=== PATIENT | female | born 1980 | race Caucasian/White ===

== ENCOUNTER 2018-07-13 16:48 | Emergency (ER) | payer MEDICAID ==
[~2018-07-13] VITALS: Ht 172.7 cm; Wt 74.0 kg
[~2018-07-13 16:48] MED LIST: HYDR-3241 PO; LORA-445 PO
[2018-07-13 18:29] LABS: BASOPHILS # (AUTO) 0.05 x10^3/uL (0-0.1); BASOPHILS % (AUTO) 1 % (0-1); EOSINOPHILS # (AUTO) 0.16 x10^3/uL (0-0.4); EOSINOPHILS % (AUTO) 3 % (1-7); LYMPHOCYTES # (AUTO) 2.32 x10^3/uL (1-3.4); LYMPHOCYTES % (AUTO) 48 % (22-44); MD NO; MEAN CORPUSCULAR HEMOGLOBIN 30.7 pg (27.0-34.8); MEAN CORPUSCULAR HGB CONC 32.7 g/dL (32.4-35.8); MEAN CORPUSCULAR VOLUME 93.8 fL (80-100); MONOCYTES # (AUTO) 0.41 x10^3/uL (0.2-0.8); MONOCYTES % (AUTO) 9 % (2-9); NEUTROPHILS % (AUTO) 39 % (42-75); PLATELET COUNT 259 x10^3/uL (130-400); RED BLOOD COUNT 3.13 x10^6/uL (3.82-5.3); RED CELL DISTRIBUTION WIDTH 16.4 % (9.6-15.2)
[2018-07-13 18:42] LABS: ALANINE AMINOTRANSFERASE 33 U/L (12-78); ALBUMIN 2.8 g/dL (3.4-5.0); ANION GAP 8 mmol/L (5-15); CALCIUM 8.2 mg/dL (8.5-10.1); CHLORIDE 112 mmol/L (98-107); CREATININE 0.59 mg/dL (0.55-1.02)
[2018-07-13 18:46] LABS: ALKALINE PHOSPHATASE 102 U/L (45-117); BILIRUBIN,TOTAL 0.6 mg/dL (0.2-1.0); TOTAL PROTEIN 8.1 g/dL (6.4-8.2); TROPONIN I < 0.015 ng/mL (0.000-0.045)
[2018-07-13] MEDS ORDERED: SODIUM CHLORIDE FLUSH 10ML SYR IVF ONE (19:00)
[2018-07-13] MEDS ORDERED: FUROSEMIDE 20 MG/2 ML IV ONE (19:00)
[2018-07-13] MEDS ORDERED: OMNIPAQUE 350 MG/ML, 100ML BOTTLE ONE (20:09)
[2018-07-13] MEDS ORDERED: FUROSEMIDE 20 MG/2 ML ONE (20:19)
[2018-07-13 21:47] VITALS: BP 128/84
== END 2018-07-13 21:49 | disposition home or self-care (01) ==
LOC: ED 20:28
DX: R18.8 Other ascites (principal); J90 Pleural effusion, not elsewhere classified
CPT/HCPCS: 36415; 71045; 71275; 80053; 83880; 84484; 84703; 85025; 93005; 93970; 96374; 99284; J1940; Q9967

== ENCOUNTER 2018-07-14 12:48 | Observation (INO) | payer OTHER ==
[~2018-07-14] VITALS: Ht 172.7 cm; Wt 74.6 kg
[2018-07-14 14:06] LABS: BASOPHILS # (AUTO) 0.04 x10^3/uL (0-0.1); BASOPHILS % (AUTO) 1 % (0-1); EOSINOPHILS # (AUTO) 0.11 x10^3/uL (0-0.4); EOSINOPHILS % (AUTO) 2 % (1-7); LYMPHOCYTES # (AUTO) 1.61 x10^3/uL (1-3.4); LYMPHOCYTES % (AUTO) 34 % (22-44); MD NO; MEAN CORPUSCULAR HEMOGLOBIN 30.5 pg (27.0-34.8); MEAN CORPUSCULAR HGB CONC 32.8 g/dL (32.4-35.8); MEAN CORPUSCULAR VOLUME 92.9 fL (80-100); MEAN PLATELET VOLUME 8.7 fL (7.4-10.4); MONOCYTES # (AUTO) 0.45 x10^3/uL (0.2-0.8); MONOCYTES % (AUTO) 9 % (2-9); NEUTROPHILS # (AUTO) 2.52 x10^3/uL (1.8-6.8); NEUTROPHILS % (AUTO) 53 % (42-75); PLATELET COUNT 250 x10^3/uL (130-400); RED CELL DISTRIBUTION WIDTH 17.1 % (9.6-15.2)
[2018-07-14 14:18] LABS: ALBUMIN 2.9 g/dL (3.4-5.0); ANION GAP 11 mmol/L (5-15); CALCIUM 8.3 mg/dL (8.5-10.1); CHLORIDE 106 mmol/L (98-107)
[2018-07-14 14:24] LABS: ALANINE AMINOTRANSFERASE 34 U/L (12-78); ALKALINE PHOSPHATASE 109 U/L (45-117); BILIRUBIN,TOTAL 0.9 mg/dL (0.2-1.0); CREATININE 0.73 mg/dL (0.55-1.02)
[2018-07-14] MEDS ORDERED: FUROSEMIDE 20 MG/2 ML IV ONE (16:30)
[2018-07-14] MEDS ORDERED: FUROSEMIDE 20 MG/2 ML ONE (16:53)
[2018-07-14] MEDS ORDERED: ENOXAPARIN 40 MG/0.4 ML SQ SCH (17:00)
[2018-07-14] MEDS ORDERED: ONDANSETRON 2MG/ML, 2ML IVPush PRN (17:00)
[2018-07-14 17:10] LABS: INTERNATIONAL NORMALIZED RATIO 1.25 (0.93-1.1); PROTHROMBIN TIME 13.1 Seconds (9.6-11.5)
[2018-07-14 18:14] VITALS: BP 127/75
[2018-07-14 18:16] LABS: MICROSCOPIC AUTO
[2018-07-14 18:17] LABS: CULTURE INDICATED? YES
[2018-07-14 21:46] VITALS: BP 100/61
[2018-07-14] MEDS ORDERED: IBUPROFEN 200 MG TABLET PO PRN (23:00)
[2018-07-14] MEDS ORDERED: IBUPROFEN 200 MG TABLET ONE (23:07)
[2018-07-15 01:10] VITALS: BP 118/74
[2018-07-15 05:47] LABS: CHLORIDE 108 mmol/L (98-107)
[2018-07-15 05:53] LABS: ALANINE AMINOTRANSFERASE 20 U/L (12-78); ALBUMIN 2.1 g/dL (3.4-5.0); ALKALINE PHOSPHATASE 80 U/L (45-117); ANION GAP 8 mmol/L (5-15); BILIRUBIN,TOTAL 0.9 mg/dL (0.2-1.0); CALCIUM 7.7 mg/dL (8.5-10.1); CREATININE 0.57 mg/dL (0.55-1.02)
[2018-07-15 07:07] VITALS: BP 117/64
[2018-07-15] MEDS ORDERED: POTASSIUM CHLORIDE 10 MEQ TABLET.ER PO SCH (08:00)
[2018-07-15] MEDS ORDERED: SPIRONOLACTONE 50 MG TABLET PO SCH (09:00)
[2018-07-15] MEDS ORDERED: FUROSEMIDE 40 MG TABLET PO SCH (09:00)
[2018-07-15] MEDS ORDERED: SPIR50TA PO (11:28)
== END 2018-07-15 14:07 | disposition home or self-care (01) ==
LOC: ED 15:49 → SUATTDRO 16:23 → EDIP 16:41 → 5SO 17:29 → DCLOUNGE 07-15 12:10
PROVIDERS: ADMIT Internal Medicine; ATTEND Internal Medicine
DX: K70.9 Alcoholic liver disease, unspecified (principal); J90 Pleural effusion, not elsewhere classified; E88.09 Other disorders of plasma-protein metabolism, not elsewhere classified; R18.8 Other ascites; E43 Unspecified severe protein-calorie malnutrition; K76.0 Fatty (change of) liver, not elsewhere classified; Z80.0 Family history of malignant neoplasm of digestive organs
CPT/HCPCS: 36415; 71046; 76700; 80053; 80074; 81001; 83880; 84443; 84703; 85025; 85610; 87086; 93005; 93306; 96372; 96374; 99284; G0378; J1650; J1940

== ENCOUNTER 2020-09-17 14:46 | Emergency (ER) | payer OTHER ==
[~2020-09-17] VITALS: Ht 170.2 cm; Wt 75.0 kg
[~2020-09-17 14:46] MED LIST changes: +SPIR50TA PO
--- NOTE | 2020-09-17 15:06 | NUR ---
PT HAS CO LEG PAIN AND LEG SWELLING. PT STATES DIAGNOSED W UMBILICAL HERNIA, PCP THINKS IT MAYBE STRANGULATED DUE TO NEW SYMPTOMS.
[2020-09-17] MEDS ORDERED: HYDROmorphone 2 MG/ML, 1ML IVPush PRN (15:30)
[2020-09-17] MEDS ORDERED: ONDANSETRON 2MG/ML, 2ML IVPush ONE (15:30)
--- NOTE | 2020-09-17 16:04 | NUR ---
US AT BEDSIDE
[2020-09-17 16:17] LABS: MICROSCOPIC NOT IND
[2020-09-17] MEDS ORDERED: ONDANSETRON 2MG/ML, 2ML ONE (16:17)
[2020-09-17] MEDS ORDERED: HYDROmorphone 1 MG/ML, 1ML INJ ONE (16:17)
[2020-09-17 16:30] LABS: BASOPHILS % (AUTO) 1 % (0-1); EOSINOPHILS % (AUTO) 3 % (1-7); LYMPHOCYTES % (AUTO) 35 % (22-44); MEAN CORPUSCULAR HEMOGLOBIN 32.4 pg (27.0-34.8); MEAN CORPUSCULAR HGB CONC 34.5 g/dL (32.4-35.8); MEAN PLATELET VOLUME 7.8 fL (7.4-10.4); MONOCYTES % (AUTO) 9 % (2-9); NEUTROPHILS % (AUTO) 51 % (42-75); PLATELET COUNT 95 x10^3/uL (130-400); RED BLOOD COUNT 3.49 x10^6/uL (3.82-5.3); RED CELL DISTRIBUTION WIDTH 16.2 % (9.6-15.2)
[2020-09-17 16:34] LABS: MD NO
[2020-09-17 16:41] LABS: ALANINE AMINOTRANSFERASE 22 U/L (12-78); ALBUMIN 2.9 g/dL (3.4-5.0); ANION GAP 9 mmol/L (5-15); CALCIUM 9.2 mg/dL (8.5-10.1); CHLORIDE 112 mmol/L (98-107); CREATININE 0.65 mg/dL (0.55-1.02)
[2020-09-17 16:46] LABS: ALKALINE PHOSPHATASE 103 U/L (45-117); TOTAL PROTEIN 7.7 g/dL (6.4-8.2)
--- NOTE | 2020-09-17 16:50 | NUR ---
PT AMBULATED TO BATHROOM W STEADY, PT TO IMAGING
--- NOTE | 2020-09-17 17:36 | NUR ---
US IV TO PLACED FOR CT
[2020-09-17] MEDS ORDERED: OMNIPAQUE 350 MG/ML, 100ML BOTTLE ONE (18:18)
--- NOTE | 2020-09-17 18:44 | NUR ---
MEDICATED FOR PAIN, REPORT TO LUI[facility]
[2020-09-17 19:00] VITALS: BP 122/75
== END 2020-09-17 20:08 | disposition home or self-care (01) ==
LOC: ED 20:00
DX: R10.33 Periumbilical pain (principal); K42.9 Umbilical hernia without obstruction or gangrene; R60.0 Localized edema; K59.00 Constipation, unspecified; R11.10 Vomiting, unspecified
CPT/HCPCS: 36415; 74022; 74177; 80053; 81003; 83690; 83880; 84703; 85025; 93970; 96374; 96375; 99285; J1170; J2405; Q9967

== ENCOUNTER 2020-11-12 13:05 | Emergency (ER) | payer MEDICAID, OTHER ==
[~2020-11-12] VITALS: Ht 170.2 cm; Wt 77.0 kg
--- NOTE | 2020-11-12 13:59 | NUR ---
PT WALK TO ROOM FROM LOBBY
--- NOTE | 2020-11-12 14:16 | NUR ---
PT HAS CO SOB AND CHEST PRESSURE. CHRONIC LEG SWELLING W INCREASED PAIN. PT ALSO HAS ABDOMINAL PAIN W HERNIA. ON CARD MONITOR. PT DENIES HEALTH HISTORY. VSS
[2020-11-12 14:44] LABS: BASOPHILS % (AUTO) 1 % (0-1); EOSINOPHILS % (AUTO) 2 % (1-7); LYMPHOCYTES % (AUTO) 22 % (22-44); MEAN CORPUSCULAR HEMOGLOBIN 32.6 pg (27.0-34.8); MEAN CORPUSCULAR HGB CONC 33.9 g/dL (32.4-35.8); MEAN PLATELET VOLUME 8.2 fL (7.4-10.4); MONOCYTES % (AUTO) 8 % (2-9); NEUTROPHILS % (AUTO) 68 % (42-75); PLATELET COUNT 93 x10^3/uL (130-400); RED BLOOD COUNT 3.01 x10^6/uL (3.82-5.3); RED CELL DISTRIBUTION WIDTH 16.1 % (9.6-15.2)
[2020-11-12 14:47] LABS: MD NO
[2020-11-12 14:53] LABS: ALANINE AMINOTRANSFERASE 23 U/L (12-78); ALBUMIN 2.6 g/dL (3.4-5.0); ANION GAP 7 mmol/L (5-15); CALCIUM 8.5 mg/dL (8.5-10.1); CHLORIDE 109 mmol/L (98-107)
[2020-11-12 14:58] LABS: ALKALINE PHOSPHATASE 121 U/L (45-117); BILIRUBIN,TOTAL 2.4 mg/dL (0.2-1.0)
--- NOTE | 2020-11-12 15:00 | NUR ---
PT RESTING, VSS. DENIES CP AT THIS TIME.
[2020-11-12 15:38] VITALS: BP 130/75
--- NOTE | 2020-11-12 15:39 | NUR ---
Patient given discharge instructions and they have confirmed that they understand the instructions. Patient ambulatory with steady gait.
== END 2020-11-12 15:41 | disposition home or self-care (01) ==
LOC: ED 15:22
DX: K70.30 Alcoholic cirrhosis of liver without ascites (principal); E88.09 Other disorders of plasma-protein metabolism, not elsewhere classified
CPT/HCPCS: 36415; 71045; 80053; 83880; 85025; 93005; 99285

== ENCOUNTER 2021-01-03 21:15 | Emergency (ER) | payer MEDICAID ==
[~2021-01-03] VITALS: Ht 172.7 cm; Wt 66.7 kg
[2021-01-03 21:53] LABS: BASOPHILS % (AUTO) 1 % (0-1); EOSINOPHILS % (AUTO) 2 % (1-7); LYMPHOCYTES % (AUTO) 37 % (22-44); MD NO; MEAN CORPUSCULAR HEMOGLOBIN 32.3 pg (27.0-34.8); MEAN CORPUSCULAR HGB CONC 35.1 g/dL (32.4-35.8); MEAN PLATELET VOLUME 7.8 fL (7.4-10.4); MONOCYTES % (AUTO) 14 % (2-9); NEUTROPHILS % (AUTO) 47 % (42-75); PLATELET COUNT 150 x10^3/uL (130-400); RED BLOOD COUNT 3.31 x10^6/uL (3.82-5.3); RED CELL DISTRIBUTION WIDTH 15.1 % (9.6-15.2)
[2021-01-03 22:06] LABS: ALANINE AMINOTRANSFERASE 35 U/L (12-78); ALBUMIN 2.9 g/dL (3.4-5.0); CALCIUM 8.9 mg/dL (8.5-10.1); CHLORIDE 83 mmol/L (98-107); CREATININE 0.98 mg/dL (0.55-1.02)
[2021-01-03 22:34] LABS: ANION GAP 11 mmol/L (5-15)
[2021-01-03 22:38] LABS: ALKALINE PHOSPHATASE 154 U/L (45-117); BILIRUBIN,TOTAL 1.4 mg/dL (0.2-1.0)
[2021-01-03 22:39] LABS: TOTAL PROTEIN 8.4 g/dL (6.4-8.2)
--- NOTE | 2021-01-03 23:05 | NUR ---
PT RESTING IN GURNEY, STATES FEELING FINE, NO HEADACHE, DIZZINESS/LIGHTHEADNESS. PIV PLACED, ERP AT BEDSIDE
[2021-01-03] MEDS ORDERED: SODIUM CHLORIDE 0.9% 1,000ML IVBOLUS ONE (23:30)
[2021-01-04 00:02] VITALS: BP 104/43
--- NOTE | 2021-01-04 00:15 | NUR ---
Patient given discharge instructions and they have confirmed that they understand the instructions. Patient ambulatory with steady gait.
== END 2021-01-04 00:16 | disposition home or self-care (01) ==
LOC: ED 01-04 00:01
DX: K70.30 Alcoholic cirrhosis of liver without ascites (principal); E87.1 Hypo-osmolality and hyponatremia; R60.0 Localized edema; E88.09 Other disorders of plasma-protein metabolism, not elsewhere classified
CPT/HCPCS: 36415; 80053; 85025; 96360; 99283; J7030